=== PATIENT | female | born 1995 | race Caucasian/White ===

== ENCOUNTER 2017-12-27 20:05 | Emergency (ER) | payer OTHER ==
[2017-12-27] MEDS ORDERED: IBUPROFEN 400 MG TAB ONE (21:16)
--- NOTE | 2017-12-27 21:21 | ER ---
Nurse's Notes [facility] Name: Glory Devine Age: 22 yrs Sex: Female : 1995 Arrival Date: 12/27/2017 Time: 20:06 Bed 9 Private MD: Diagnosis: Sprain of ankle-Right Presentation: 12/27 20:11 Presenting complaint: Patient states: rolled my right ankle on Saturday and its still la1 hurting very bad. Transition of care: patient was not received from another setting of care. Onset of symptoms was December 27, 2017. Risk Assessment: Do you want to hurt yourself or someone else? Patient reports no desire to harm self or others. Initial Sepsis Screen: Does the patient meet any 2 criteria? No. Patient's initial sepsis screen is negative. Does the patient have a suspected source of infection? No. Patient's initial sepsis screen is negative. Care prior to arrival: None. 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 - Social history:: Smoking status: Patient/guardian denies using tobacco. - Ebola Screening: : No symptoms or risks identified at this time. Screenin:35 Abuse screen: Denies threats or abuse. Nutritional screening: No deficits noted. bb Tuberculosis screening: No symptoms or risk factors identified. Fall Risk None identified. Assessment: 20:35 General: Appears in no apparent distress. Behavior is calm, cooperative. Pain: bb Complains of pain in right ankle Pain currently is 7 out of 10 on a pain scale. Neuro: Level of Consciousness is awake, alert, obeys commands, Oriented to person, place, time, situation. Cardiovascular: No deficits noted. Respiratory: Respiratory effort is even, unlabored. Derm: Skin is intact, is healthy with good turgor, Skin is pink, warm \T\ dry. Musculoskeletal: Swelling present in right ankle Reports pain in right ankle. 21:57 Reassessment: Patient and/or family updated on plan of care and expected duration. Pain bb level reassessed. Patient is alert, oriented x 3, equal unlabored respirations, skin warm/dry/pink. splint to right lower extremity in place, pt able to move toes, cap refill less than 3 seconds, pt verbalized understanding of and agrees to plan of care pt assisted to vehicle via wheelchair spouse is driving. Vital Signs: 20:13 Pulse 66; Resp 19; Temp 98.3(TE); Pulse Ox 100% on R/A; Weight 122.47 kg; Height 5 ft. la1 7 in. (170.18 cm); 20:14 BP 133 / 75; la1 22:00 BP 121 / 57; Pulse 58; Resp 16 S; Temp 98.4(O); Pulse Ox 94% on R/A; Pain 5/10; bb 20:13 Body Mass Index 42.29 (122.47 kg, 170.18 cm) la1 ED Course: 20:06 Patient arrived in ED. ds1 20:12 Triage completed. la1 20:12 Arm band placed on left wrist. la1 20:35 Angi Thompson, RIMA is Primary Nurse. bb 20:35 Mario Barron PA is PHCP. cp 20:35 Mario Milligan MD is Attending Physician. cp 20:35 Patient has correct armband on for positive identification. Bed in low position. Call bb light in reach. Adult w/ patient. 20:45 Ankle Right 3 View XRAY In Process Unspecified. EDMS 21:20 Ryne Serna MD is Referral Physician. cp 21:45 Crutch training done. Air stirrup applied to right ankle. bb 22:01 No provider procedures requiring assistance completed. Patient did not have IV access bb during this emergency room visit. Administered Medications: 21:13 Drug: Ibuprofen 800 mg Route: PO; bb 21:56 Follow up: Response: No adverse reaction bb Outcome: 21:20 Discharge ordered by . cp 22:01 Discharged to home via wheelchair, with crutches, with family. bb 22:01 Condition: stable 22:01 Discharge instructions given to patient, Instructed on discharge instructions, follow up and referral plans. medication usage, crutch walking, Demonstrated understanding of instructions, follow-up care, crutch walking, Prescriptions given X 1. 22:02 Patient left the ED. bb Signatures: Dispatcher [employer] Stacy Fox ds1 Angi Thompson RN RN bb Onofre Hinojosa RN RN la1 Mario Barron PA PA cp
--- NOTE | 2017-12-27 21:21 | EDPHYS ---
Physician Documentation [facility] Name: Glory Devine Age: 22 yrs Sex: Female : 1995 Arrival Date: 12/27/2017 Time: 20:06 Bed 9 Private MD: ED Physician Mario Milligan HPI: 12/27 21:00 This 22 yrs old Female presents to ER via Ambulatory with complaints of Ankle cp Injury. 21:00 The patient presents with an injury, pain, that is acute, swelling, tenderness. The cp complaints affect the right ankle. Onset: The symptoms/episode began/occurred 2 day(s) ago. Associated signs and symptoms: Pertinent negatives: calf tenderness, numbness, warmth. 21:00 Modifying factors: the symptoms are aggravated by weight bearing, movement. 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 - Social history:: Smoking status: Patient/guardian denies using tobacco. - Ebola Screening: : No symptoms or risks identified at this time. ROS: 21:05 Constitutional: Negative for body aches, chills, fever, poor PO intake. cp 21:05 Eyes: Negative for injury, pain, redness, and discharge. cp 21:05 ENT: Negative for drainage from ear(s), ear pain, sore throat, difficulty swallowing, difficulty handling secretions. 21:05 Cardiovascular: Negative for chest pain, palpitations. 21:05 Respiratory: Negative for cough, shortness of breath, wheezing. 21:05 Abdomen/GI: Negative for abdominal pain. 21:05 MS/extremity: Positive for pain, swelling, tenderness, of the right ankle, Negative for deformity, paresthesias. 21:05 Skin: Negative for cellulitis, rash. 21:05 All other systems are negative. Exam: 21:10 Constitutional: The patient appears in no acute distress, alert, awake, non-toxic, well cp developed, well nourished. 21:10 Head/Face: Normocephalic, atraumatic. cp 21:10 Eyes: Periorbital structures: appear normal, Conjunctiva: normal, Lids and lashes: appear normal, bilaterally. 21:10 ENT: External ear(s): are unremarkable, Nose: is normal, Mouth: is normal, Posterior pharynx: is normal, airway is patent. 21:10 Neck: ROM/movement: is normal, is supple, without pain, no range of motions limitations. 21:10 Chest/axilla: Inspection: normal. 21:10 Cardiovascular: Rate: normal. 21:10 Respiratory: the patient does not display signs of respiratory distress, Respirations: normal, no use of accessory muscles, no retractions, labored breathing, is not present. 21:10 Musculoskeletal/extremity: Perfusion: the extremity is normally perfused throughout, Sensation intact. Joints: All joints are normal except the right ankle displays painful range of motion, swelling, tenderness, Weight bearing: able to fully bear weight, no tenderness noted proximal fibula or base of fifth right metatarsal, Achilles tendon intact. 21:10 Skin: cellulitis, is not appreciated, no rash present. 21:10 Neuro: Orientation: to person, place \T\ time. Mentation: is normal. Vital Signs: 20:13 Pulse 66; Resp 19; Temp 98.3(TE); Pulse Ox 100% on R/A; Weight 122.47 kg; Height 5 ft. la1 7 in. (170.18 cm); 20:14 BP 133 / 75; la1 22:00 BP 121 / 57; Pulse 58; Resp 16 S; Temp 98.4(O); Pulse Ox 94% on R/A; Pain 5/10; bb 20:13 Body Mass Index 42.29 (122.47 kg, 170.18 cm) la1 Procedures: 22:00 Splinting: Splint applied to right ankle using Air Cast, applied by nurse. Examined by cp me, post splint application: neurovascular intact, Patient tolerated well. 22:00 Crutch training provided to patient and/or family. Return demonstration given. cp MDM: 20:36 Patient medically screened. cp 21:00 Differential diagnosis: fracture, sprain, dislocation. cp 21:20 Data reviewed: vital signs, nurses notes, radiologic studies, plain films, and as a cp result, I will discharge patient. 21:20 Test interpretation: by ED physician or midlevel provider: plain radiologic studies. cp Counseling: I had a detailed discussion with the patient and/or guardian regarding: the historical points, exam findings, and any diagnostic results supporting the discharge/admit diagnosis, radiology results, to return to the emergency department if symptoms worsen or persist or if there are any questions or concerns that arise at home. Response to treatment: the patient's symptoms have mildly improved after treatment, and as a result, I will discharge patient. 12/27 20:13 Order name: Ankle Right 3 View XRAY la1 12/27 21:19 Order name: Crutches; Complete Time: 21:56 cp 12/27 21:19 Order name: Ankle Splint: Aircast; Complete Time: 21:56 cp Administered Medications: 21:13 Drug: Ibuprofen 800 mg Route: PO; bb 21:56 Follow up: Response: No adverse reaction bb Disposition: 12/27/17 21:20 Discharged to Home. Impression: Sprain of ankle - Right. - Condition is Stable. - Discharge Instructions: Ankle Sprain. - Prescriptions for Ibuprofen 800 mg Oral Tablet - take 1 tablet by ORAL route every 8 hours As needed take with food; 30 tablet. - Medication Reconciliation Form, Thank You Letter, Antibiotic Education, Prescription Opioid Use form. - Follow up: Ryne Serna MD; When: 5 - 6 days; Reason: pain continues. - Problem is new. - Symptoms have improved. Addendum: 12/30/2017 08:56 Co-signature as Attending Physician, Mario Milligan MD I agree with the assessment and c lopez plan of care. Signatures: Dispatcher [employer] EDHI Mario Milligan MD MD cha Ballard, Brenda RN Onofre Hull RN RN la1 Mario Barron PA PA cp Corrections: (The following items were deleted from the chart) 12/27 22:02 21:20 12/27/2017 21:20 Discharged to Home. Impression: Sprain of ankle - Right. bb Condition is Stable. Forms are Medication Reconciliation Form, Thank You Letter, Antibiotic Education, Prescription Opioid Use. Follow up: Dr. Ryne Serna; When: 5 - 6 days; Reason: pain continues. Problem is new. Symptoms have improved. cp
--- NOTE | 2017-12-27 22:13 | RAD REPORT ---
EXAM DESCRIPTION: RAD - Ankle Right 3 View - 12/27/2017 8:44 pm CLINICAL HISTORY: Ankle pain COMPARISON: None. FINDINGS: No fracture, dislocation or periosteal reaction. No joint effusion seen. No joint space na rrowing. Lateral soft tissue swelling is present. IMPRESSION: Soft tissue swelling with no right ankle fracture or other acute finding.
[2017-12-27 22:59] VITALS: BP 121/57; TEMP 98.4; O2SAT 94
== END 2017-12-27 22:02 | disposition home or self-care (01) ==
LOC: ER 20:05
DX: S93.401A Sprain of unspecified ligament of right ankle, initial encounter (principal); X58.XXXA Exposure to other specified factors, initial encounter; Y93.9 Activity, unspecified; Y92.9 Unspecified place or not applicable; Z88.8 Allergy status to other drugs, medicaments and biological substances; Z91.048 Other nonmedicinal substance allergy status
CPT/HCPCS: 99284